=== PATIENT | male | born 2000 | race Two or more races ===

== ENCOUNTER 2024-07-13 17:57 | Emergency (ER) | payer OTHER ==
[2024-07-13 18:07] VITALS: BP 120/68; PULSE 84; RESP 18; TEMP 98.5; BMI 23.6
[2024-07-14 12:26] LABS: HIV INTERPRETATION NEGATIVE (NEGATIVE)
== END 2024-07-13 19:18 | disposition home or self-care (01) ==
LOC: JERFT 17:57
DX: R51.9 Headache, unspecified (principal); R42 Dizziness and giddiness; R07.89 Other chest pain; V73.6XXA Passenger on bus injured in collision with car, pick-up truck or van in traffic accident, initial encounter; Y92.410 Unspecified street and highway as the place of occurrence of the external cause
CPT/HCPCS: 36415; 86803; 87389; 93005; 93010; 99284-25

== ENCOUNTER 2024-10-01 17:06 | Emergency (ER) | payer OTHER ==
[2024-10-01 17:19] VITALS: BMI 23.6
[2024-10-01 19:04] LABS: BASO % 0.6 % (0-2.0); HEMATOCRIT 43.5 % (35.4-49); HEMOGLOBIN 14.4 GM/dL (11.7-16.9); LYMPH % 20.6 % (8-40); MCHC 33.2 g/dl (32.0-35.9); MEAN CELL VOLUME 90.6 fl (80-96); MEAN PLT VOLUME 8.1 fl (7.5-11.1); NEUT % 71.8 % (42.8-82.8); PLATELET COUNT 235 10^3/uL (134-434); RDW 14.2 % (11.9-15.9); WHITE BLOOD COUNT 4.7 K/mm3 (4.0-10.0)
[2024-10-01 19:18] LABS: CHLORIDE 107 mmol/L (98-107); POTASSIUM 4.3 mmol/L (3.5-5.1); SODIUM 139 mmol/L (136-145)
[2024-10-01 19:21] LABS: ALBUMIN 4.3 g/dl (3.4-5.0); ANION GAP 6 mmol/L (4-13); CALCIUM 9.6 mg/dL (8.5-10.1); CO2 26 mmol/L (21-32)
[2024-10-01 19:22] LABS: GLUCOSE,RANDOM 96 mg/dL (74-106)
[2024-10-01 19:25] LABS: SGOT/AST 15 U/L (15-37); SGPT/ALT 26 U/L (13-61)
[2024-10-01 19:26] LABS: BILIRUBIN,TOTAL 0.5 mg/dL (0.2-1); TOT PROT 7.4 g/dl (6.4-8.2)
[2024-10-01 19:27] LABS: ALK PHOS 55 U/L (45-117)
[2024-10-01 19:45] LABS: INR 1.13 (0.83-1.09); PROTHROMBIN TIME (PATIENT) 12.7 SEC (9.7-13.0)
[2024-10-01 19:46] LABS: ACTIVATED PTT 33.2 SECONDS (25.2-36.5)
[2024-10-01 20:30] LABS: URINE APPEARANCE CLEAR
[2024-10-01 20:32] LABS: URINE BILIRUBIN NEGATIVE (NEGATIVE); URINE COLOR YELLOW; URINE GLUCOSE (UA) NEGATIVE (NEGATIVE); URINE KETONE NEGATIVE (NEGATIVE); URINE LEUK ESTERASE NEGATIVE (NEGATIVE); URINE NITRITE NEGATIVE (NEGATIVE); URINE PROTEIN NEGATIVE (NEGATIVE)
[2024-10-01 20:39] LABS: METHADONE, UR NEGATIVE (NEGATIVE); OPIATES, URI NEGATIVE (NEGATIVE); PHENCYCLIDINE,URINE NEGATIVE (NEGATIVE)
[2024-10-01 20:40] LABS: URINE AMPHETAMINES NEGATIVE (NEGATIVE); URINE BARBITURATES NEGATIVE (NEGATIVE)
[2024-10-01 20:48] LABS: COCAINE, UR NEGATIVE (NEGATIVE); URINE BENZODIAZEPINES NEGATIVE (NEGATIVE)
[2024-10-01] MEDS ORDERED: IBUPROFEN 600 MG TABLET (FP) PO ONE (21:36)
[2024-10-01] MEDS: IBUPROFEN 600 MG TABLET (FP) PO ONE (21:43)
[2024-10-02 11:16] VITALS: BP 136/85; PULSE 79; RESP 18; TEMP 97.8
== END 2024-10-02 11:24 | disposition short-term general hospital (02) ==
LOC: JER 17:06
DX: F22 Delusional disorders (principal)
CPT/HCPCS: 0241U-QW; 36415; 80053; 80307; 81003; 84443; 85025; 85610; 85730; 93005; 93010; 99285-25

== ENCOUNTER 2025-01-31 16:52 | Emergency (ER) | payer OTHER ==
[2025-01-31 16:58] VITALS: BP 132/61; PULSE 111; RESP 18; TEMP 98.4; BMI 20.7
[2025-01-31] MEDS ORDERED: DIPHTH,PERTUSS(ACELL),TET 0.5 ML DISP.SYRIN IM ONE (17:26)
[2025-01-31] MEDS ORDERED: ACETAMINOPHEN 500 MG TABLET (FP) ONE (17:33)
[2025-01-31] MEDS: DIPHTH,PERTUSS(ACELL),TET 0.5 ML DISP.SYRIN IM ONE (17:36)
[2025-01-31] MEDS: ACETAMINOPHEN 500 MG TABLET (FP) PO ONE (17:40)
[2025-02-01] MEDS ORDERED: BACITRACIN ZINC 15 GM TUBE TOPICAL OINTMENT TP SCH (10:00)
== END 2025-01-31 20:58 | disposition home or self-care (01) ==
LOC: JER 16:52
PROC: 3E0234Z Introduction of Serum, Toxoid and Vaccine into Muscle, Percutaneous Approach (ICD-10-PCS; principal; 2025-01-31)
DX: R42 Dizziness and giddiness (principal); Z23 Encounter for immunization; Y04.8XXA Assault by other bodily force, initial encounter
CPT/HCPCS: 90471; 90715; 99284-25